=== PATIENT | male | born 1960 | race American Indian/Alaskan Native ===

== ENCOUNTER 2019-10-24 19:27 | Emergency (ER) | payer MEDICARE, OTHER ==
[2019-10-24 19:46] VITALS: BP 126/92
[2019-10-24] MEDS ORDERED: traMADol 50 MG TAB PO ONE (20:55)
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
== END 2019-10-24 22:39 | disposition home or self-care (01) ==
LOC: ED 19:27
DX: S16.1XXA Strain of muscle, fascia and tendon at neck level, initial encounter (principal); S43.102A Unspecified dislocation of left acromioclavicular joint, initial encounter; F07.81 Postconcussional syndrome; I10 Essential (primary) hypertension; E78.00 Pure hypercholesterolemia, unspecified; Z90.89 Acquired absence of other organs; Z98.890 Other specified postprocedural states; Z87.891 Personal history of nicotine dependence; X58.XXXA Exposure to other specified factors, initial encounter; Y93.89 Activity, other specified; Y92.89 Other specified places as the place of occurrence of the external cause; Y99.8 Other external cause status
CPT/HCPCS: 70450; 72125